=== PATIENT | male | born 1965 | race Caucasian/White ===

== ENCOUNTER → 2019-04-11 | Day surgery (SDC) | payer OTHER ==
[~2019-04-11] MED LIST: ATEN50TA PO; IV RINGERS,LACTATED 1000ML 1,000 ML IV SCH; LIDOCAINE 1% PF 2 ML VIAL. ID PRN; MIDAZOLAM HCL/PF 2 MG/2 ML VIAL. IV PRN; PROPOFOL 40 ML IV ONE; RANI150T2 PO; fentaNYL PF VIAL 100 MCG/2 ML VIAL IV PRN
[2019-04-11 08:30] VITALS: BP 110/74
--- NOTE | 2019-04-11 10:06 | HP ---
ADMIT DATE: UPDATED HISTORY AND PHYSICAL REFERRING PHYSICIAN: Law Guido DO HISTORY OF PRESENT ILLNESS: This is a 54-year-old male with past medical history significant for diverticulosis, colonic polyps, anxiety, hypertension, is seen in followup of tubulovillous rectal adenoma. Surveillance exam is recommended in 3 years' time, which is why he is here. There has been no bleeding, no change in bowel habits, no change in weight or appetite. No additional symptoms at this time. PAST MEDICAL HISTORY: Diverticulosis, colonic polyps, apnea, anxiety, hypertension. ALLERGIES: None. MEDICATIONS: Atenolol, ranitidine. SOCIAL HISTORY: He is a drinker, nonsmoker. FAMILY HISTORY: Significant for colon polyps in father, diabetes in father and some sibling, hypertension in mother. PAST SURGICAL HISTORY: Noncontributory. REVIEW OF SYSTEMS: Per records. PHYSICAL EXAMINATION: GENERAL: Reveals a well-nourished, well-developed male, who is alert and cooperative, in no acute distress. VITAL SIGNS: Temperature 97, pulse 51, respirations 20. HEENT: Normocephalic and atraumatic. Pupils and extraocular muscles are not tested. Sclerae anicteric. NECK: Supple. LUNGS: Clear. CARDIOVASCULAR: Reveals an S1, S2 without S3, S4, or appreciable murmur. ABDOMEN: Soft abdomen, normal bowel sounds without appreciable hepatosplenomegaly. EXTREMITIES: Reveals no cyanosis, clubbing, or edema. IMPRESSION: History of colonic polyps with advanced pathology. Surveillance exam is recommended at this time. Risks and benefits have been discussed including risk of hemorrhage and perforation. He is willing to proceed. KIMBERLY HAMMOND MD DR: SAUL/bri JOB#: [id number] / [id number]
--- NOTE | 2019-04-12 15:07 | PATHOLOGY ---
[facility] Accession Number: [id number] . 01 Material submitted: . colon - SIGMOID POLYP. Modifiers: sigmoid . 01 Clinical history: . Hx polyps . 02 Diagnosis: Colon, sigmoid, biopsy: - Adenomatous polyp. (SKM:pit; 04/12/2019) QTP/04/12/2019 . 02 Electronically signed: . Aime Ta MD, Pathologist NPI- [id number] . 01 Gross description: . Received in formalin labeled "Chris, Seth, sigmoid polyp," is a single segment of spring soft tissue measuring 0.6 cm in maximum dimension. The specimen is entirely submitted in cassette A1. (TSD; 04/11/2019) TOB/TOB . 02 Pathologist provided ICD-10: D12.5 . 02 CPT . 498575 Specimen Comment: A courtesy copy of this report has been sent to Specimen Comment: [phone], . Specimen Comment: Report sent to / DR GARCIA Performed at: [facility] [address], [place] [id number] MD Tera Morales MD Phone: [phone] Performed at: 02 [facility] [address], [place] [id number] MD Uriel Armas MD Phone: [phone]
== END ==
LOC: SURG 06:35
PROVIDERS: ATTEND Internal Medicine Gastroenterology
DX: Z12.11 Encounter for screening for malignant neoplasm of colon (principal); D12.5 Benign neoplasm of sigmoid colon; K57.30 Diverticulosis of large intestine without perforation or abscess without bleeding; K64.0 First degree hemorrhoids; F41.9 Anxiety disorder, unspecified; I10 Essential (primary) hypertension; Z86.010 Personal history of colon polyps; Z83.71 Family history of colonic polyps
CPT/HCPCS: 45385; 88305; J2704; 45380

== ENCOUNTER → 2021-02-26 | Outpatient (CLI) | payer OTHER ==
[2019-04-11 08:30] VITALS: BP 110/74
[~2021-02-26] MED LIST changes: -IV RINGERS,LACTATED 1000ML 1,000 ML IV SCH; -LIDOCAINE 1% PF 2 ML VIAL. ID PRN; -MIDAZOLAM HCL/PF 2 MG/2 ML VIAL. IV PRN; -PROPOFOL 40 ML IV ONE; -fentaNYL PF VIAL 100 MCG/2 ML VIAL IV PRN
--- NOTE | 2021-02-26 10:54 | KCIC ---
EXAM: CT coronary artery calcium screening; radiologist over read. HISTORY: Coronary artery calcium screening. Hypertension. Cigarette smoking. TECHNIQUE: Computed tomographic images of the chest were obtained without contrast. Multiplanar refor matting was performed. *One or more of the following individualized dose reduction techniques were utilized for this examina tion: 1. Automated exposure control. 2. Adjustment of the mA and/or kV according to patient size. 3. Use of iterative reconstruction technique. COMPARISON: None. FINDINGS: The heart is normal in size. The aorta is normal in caliber. There is no infiltrate, effusi on or pneumothorax. There is a 5 mm nodule within the right middle lobe processes series 5, image 18) . There is a 3 mm nodule along the left pleural fissure, likely a benign fissural lymph node. There i s a 5 mm nodule within the lateral left upper lobe (series 5, image 18). There is calcified atherosclerotic plaque involving the coronary arteries. There is no lymphadenopath y. There is no acute finding involving the visualized upper abdomen or visualized osseous structures. Coronary artery calcium score: Left main artery - 180.0 Left anterior descending - 326.4 Left circumflex - 165.5 Right coronary artery - 30.4 TOTAL = 630.2 IMPRESSION: 1. Coronary artery calcium score of 630.2. There is a large amount of atherosclerotic plaque. 2. Bilateral pulmonary nodules measuring up to 5 mm. Follow-up is recommended in one year if there ar e risk factors for pulmonary neoplasm. Electronically signed by: Dari Fischer MD (02/26/2021 10:51 AM) [id number]
== END ==
LOC: KCIC 10:12
PROVIDERS: ATTEND Physician Assistant
DX: Z13.6 Encounter for screening for cardiovascular disorders (principal); I10 Essential (primary) hypertension; F17.200 Nicotine dependence, unspecified, uncomplicated
CPT/HCPCS: 75571